=== PATIENT | female | born 1990 ===

== ENCOUNTER 2019-12-28 20:08 | Emergency (ER) | payer SELFPAY ==
[~2019-12-28] VITALS: Ht 160 cm; Wt 60.0 kg
[2019-12-28 21:56] VITALS: BP 113/74
[2019-12-28] MEDS ORDERED: IBUPROFEN 600 MG TABLET PO ONE (22:00)
== END 2019-12-28 21:58 | disposition home or self-care (01) ==
LOC: ED 20:15
DX: S93.491A Sprain of other ligament of right ankle, initial encounter (principal); W01.0XXA Fall on same level from slipping, tripping and stumbling without subsequent striking against object, initial encounter; Y93.89 Activity, other specified; Y92.830 Public park as the place of occurrence of the external cause; Y99.8 Other external cause status
CPT/HCPCS: 99284